=== PATIENT | male | born 1950 | race Caucasian/White ===

== ENCOUNTER → 2023-12-05 13:21 | Outpatient (REF) | payer MEDICARE, OTHER, SELFPAY | LOC: RCS 13:21 | PROVIDERS: ATTENDING PHYSICIAN Nurse Practitioner Family; REFERRING PHYSICIAN Internal Medicine Cardiovascular Disease | DX: Z01.818 Encounter for other preprocedural examination (principal) | CPT/HCPCS: 93005 ==